=== PATIENT | male | born 1960 | race Native Hawaiian/Other Pacific Islander ===

== ENCOUNTER 2019-05-13 18:15 | Emergency (ER) | payer BC ==
[~2019-05-13] VITALS: Ht 180.3 cm; Wt 86.2 kg
[2019-05-13 18:25] VITALS: TEMP 97.7
[2019-05-13 19:21] LABS: PLATELET COUNT 255 K/uL (142-355)
[2019-05-13 19:37] LABS: POTASSIUM 3.7 mmol/L (3.6-5.2)
[2019-05-13 20:20] VITALS: BP 150/97
== END 2019-05-13 20:25 | disposition home or self-care (01) ==
LOC: ED 18:15
PROVIDERS: Family Medicine
DX: N34.2 Other urethritis (principal)
CPT/HCPCS: 80053; 81000; 85027; 99283